=== PATIENT | female | born 1945 | race Caucasian/White ===

== ENCOUNTER → 2019-03-07 09:32 | Outpatient (CLI) | payer MEDICARE, OTHER, SELFPAY ==
--- NOTE | 2019-03-07 | US_ITS ---
US thyroid HISTORY: ITS.REASON: THYROID NODULE ORDERING PHYSICIAN: Chaz Vergara MD PATIENT AGE: 73 years Comparison: None FINDINGS: The right lobe is 5.3 x 3.5 x 4.2 cm. The right lobe is composed almost entirely of a solid heterogeneous nodule/mass measuring 4.5 x 3 cm. The left lobe is 4.2 x 1.6 x 1.9 cm with heterogeneous echogenicity. 5 mm isoechoic nodule present in the lower pole and an additional 4 mm isoechoic nodule present in the lower pole. IMPRESSION: 4.5 x 3 cm solid appearing right thyroid mass. This was a nodule that was targeted for fine-needle aspiration
--- NOTE | 2019-03-07 09:50 | US_ITS ---
US FNA Thyroid HISTORY: ITS.REASON: RT THYROID NODULE ORDERING PHYSICIAN: Chaz Vergara MD PATIENT AGE: 73 years COMPARISON: None TECHNIQUE: Following obtaining informed consent, using aseptic technique and local anesthesia with buffered lidocaine, fine-needle aspiration was performed of the nodule of interest using sonographic guidance. 3 passes were made into the nodule with a 25-gauge needle. Specimen was given to cytology. The patient tolerated the procedure well without evidence of immediate complications and left the ultrasound suite in stable condition. CYTOLOGY:Pending IMPRESSION: Uneventful ultrasound guided fine needle aspiration of right thyroid mass
== END ==
PROVIDERS: PCP Nurse Practitioner Family; Visit Provider Otolaryngology
DX: D34 Benign neoplasm of thyroid gland (principal); E04.1 Nontoxic single thyroid nodule
CPT/HCPCS: 10005; 76536; 76942; 88173